=== PATIENT | female | born 1965 | race Caucasian/White ===

== ENCOUNTER 2018-05-08 14:04 | Emergency (ER) | payer BC, SELFPAY ==
[2018-05-08 14:33] LABS: Bilirubin Negative (Negative); Blood, Urine Negative (Negative); Clarity Slightly Cloudy (Clear); Glucose, Urine (Dipstick) >=1000 mg/dL (Negative); Leukocyte Negative (Negative); Nitrite Negative (Negative); Protein, Urine (Dipstick) Negative (Neg-Trace); Specific Gravity, Urine 1.015 (1.005-1.030); Urobilinogen 0.2 mg/dL (0.2-1.0)
[2018-05-08] MEDS ORDERED: Cyclobenzaprine 10 MG TAB ONE (14:42)
== END 2018-05-08 14:46 | disposition home or self-care (01) ==
LOC: NAV ERS 14:04
DX: S23.41XA Sprain of ribs, initial encounter (principal); I10 Essential (primary) hypertension; E11.9 Type 2 diabetes mellitus without complications; G43.909 Migraine, unspecified, not intractable, without status migrainosus; E66.9 Obesity, unspecified; Z79.899 Other long term (current) drug therapy; X58.XXXA Exposure to other specified factors, initial encounter
CPT/HCPCS: 81003; 99283

== ENCOUNTER 2018-10-14 18:43 | Emergency (ER) | payer BC ==
[2018-10-14] MEDS ORDERED: Ketorolac Tromethamine 60 MG/2 ML VIAL ONE (19:08)
== END 2018-10-14 19:22 | disposition home or self-care (01) ==
LOC: NAV ERS 18:43
DX: M54.5 Low back pain (principal); E11.9 Type 2 diabetes mellitus without complications; I10 Essential (primary) hypertension; G43.909 Migraine, unspecified, not intractable, without status migrainosus; E66.9 Obesity, unspecified; Z79.899 Other long term (current) drug therapy; Z79.84 Long term (current) use of oral hypoglycemic drugs
CPT/HCPCS: 96372; 99283; J1885

== ENCOUNTER 2020-12-16 17:38 | Emergency (ER) | payer BC ==
[2020-12-17 16:03] LABS: SARS-CoV-2 PCR by NAA Not Detected (NotDetected)
== END 2020-12-16 18:48 | disposition home or self-care (01) ==
LOC: NAV ERS 17:38
DX: R05 Cough (principal); R09.81 Nasal congestion; Z20.822 Contact with and (suspected) exposure to COVID-19; E11.9 Type 2 diabetes mellitus without complications; I10 Essential (primary) hypertension; G43.909 Migraine, unspecified, not intractable, without status migrainosus
CPT/HCPCS: 71046; U0003; U0005

== ENCOUNTER 2022-05-12 20:19 | Emergency (ER) | payer BC, SELFPAY ==
[2022-05-12 21:09] LABS: Bilirubin Negative (Negative); Blood, Urine Small (Negative); Clarity Clear (Clear); Glucose, Urine (Dipstick) 500 mg/dL (Negative); Ketone, Urine Trace mg/dL (Negative); Leukocyte Large (Negative); Nitrite Negative (Negative); Protein, Urine (Dipstick) Negative (Neg-Trace); Urobilinogen 0.2 mg/dL (Less than 2)
[2022-05-12 21:13] LABS: Bacteria/HPF 1+ HPF (None Seen); RBC/HPF 0-3 HPF (0-3); Squamous Epithelial 0-3 HPF (0-3); WBC/HPF 21-50 HPF (0-3)
[2022-05-12] MEDS ORDERED: Cipro 250 MG TAB ONE (21:26)
== END 2022-05-12 21:30 | disposition home or self-care (01) ==
LOC: NAV ERS 20:19
DX: N39.0 Urinary tract infection, site not specified (principal); I10 Essential (primary) hypertension; E11.65 Type 2 diabetes mellitus with hyperglycemia; G43.909 Migraine, unspecified, not intractable, without status migrainosus; E66.9 Obesity, unspecified; Z79.84 Long term (current) use of oral hypoglycemic drugs; Z79.899 Other long term (current) drug therapy
CPT/HCPCS: 36416; 81003; 81015; 99284

== ENCOUNTER 2022-11-23 22:33 | Emergency (ER) | payer BC ==
[2022-11-23] MEDS ORDERED: Tetracaine 0.5% PF 4 ML BOT ONE (22:50)
[2022-11-23] MEDS ORDERED: Fluorescein Opthalmic Strip ONE (22:50)
[2022-11-23] MEDS ORDERED: Gentamicin Ophth Soln 0.3% 5 ml Bottle ONE (23:02)
== END 2022-11-23 23:09 | disposition home or self-care (01) ==
LOC: NAV ERS 22:33
DX: H10.9 Unspecified conjunctivitis (principal); H18.822 Corneal disorder due to contact lens, left eye; I10 Essential (primary) hypertension; E11.39 Type 2 diabetes mellitus with other diabetic ophthalmic complication; H42 Glaucoma in diseases classified elsewhere; E66.9 Obesity, unspecified; M79.7 Fibromyalgia; Z79.84 Long term (current) use of oral hypoglycemic drugs; Z79.899 Other long term (current) drug therapy
CPT/HCPCS: 99283

== ENCOUNTER 2023-03-05 19:22 | Emergency (ER) | payer BC, OTHER | END 2023-03-05 21:15 | disposition home or self-care (01) | LOC: NAV ERS 19:22 | DX: S66.911A Strain of unspecified muscle, fascia and tendon at wrist and hand level, right hand, initial encounter (principal); I10 Essential (primary) hypertension; E11.9 Type 2 diabetes mellitus without complications; Z79.899 Other long term (current) drug therapy; Y93.K9 Activity, other involving animal care ==

== ENCOUNTER 2023-08-06 14:32 | Emergency (ER) | payer OTHER ==
[2023-08-06] MEDS ORDERED: Ketorolac Tromethamine 60 MG/2 ML VIAL ONE (15:46)
== END 2023-08-06 16:26 | disposition home or self-care (01) ==
LOC: NAV ERS 14:32
DX: M79.672 Pain in left foot (principal); I10 Essential (primary) hypertension; E11.9 Type 2 diabetes mellitus without complications; Z79.84 Long term (current) use of oral hypoglycemic drugs; Z79.899 Other long term (current) drug therapy
CPT/HCPCS: 96372; J1885

== ENCOUNTER 2023-12-17 18:29 | Emergency (ER) | payer OTHER, SELFPAY ==
[2023-12-17] MEDS ORDERED: Tetracaine 0.5% PF 4 ML BOT ONE (19:22)
[2023-12-17] MEDS ORDERED: Fluorescein Opthalmic Strip ONE (19:22)
== END 2023-12-17 20:11 | disposition home or self-care (01) ==
LOC: NAV ERS 18:29
DX: H16.9 Unspecified keratitis (principal); H18.823 Corneal disorder due to contact lens, bilateral; I10 Essential (primary) hypertension; E11.9 Type 2 diabetes mellitus without complications; Z79.899 Other long term (current) drug therapy; Z79.85 Long-term (current) use of injectable non-insulin antidiabetic drugs; Z79.84 Long term (current) use of oral hypoglycemic drugs
CPT/HCPCS: 99283

== ENCOUNTER 2024-02-08 10:15 | Emergency (ER) | payer SELFPAY | END 2024-02-08 11:12 | disposition home or self-care (01) | LOC: NAV ERS 10:15 | DX: E11.9 Type 2 diabetes mellitus without complications (principal); I10 Essential (primary) hypertension; Z79.899 Other long term (current) drug therapy; Z79.84 Long term (current) use of oral hypoglycemic drugs | CPT/HCPCS: 99284 ==

== ENCOUNTER 2024-12-18 08:44 | Emergency (ER) | payer SELFPAY ==
[2024-12-18] MEDS ORDERED: Fluorescein Opthalmic Strip ONE (09:01)
== END 2024-12-18 09:15 | disposition home or self-care (01) ==
LOC: NAV ERS 08:44
DX: H57.89 Other specified disorders of eye and adnexa (principal); E11.9 Type 2 diabetes mellitus without complications; I10 Essential (primary) hypertension; Z79.84 Long term (current) use of oral hypoglycemic drugs; Z79.899 Other long term (current) drug therapy
CPT/HCPCS: 99283